=== PATIENT | male | born 1975 | race Caucasian/White ===

== ENCOUNTER 2016-07-01 12:59 | Emergency (ER) | payer BC ==
[2016-07-01 13:25] VITALS: BMI 33.9
--- NOTE | 2016-07-01 13:56 | PDOC ---
Attending Attestation - Resident Resident Name: Zoran Waters - ED Attending Attestation I have performed the following: I have examined & evaluated the patient, The case was reviewed & discussed with the resident, I agree w/resident's findings & plan - HPI HPI: 07/01/16 17:02 41y M no pmhx, recent cough productive of zhang sputum without asosicated fever/chills, cp, mild SHANKS las tnight - was on outpatient abx by PMD, had cxr that showed a wedge like infarct - was given 150mg of lovenox and sent to [facility] due to concern for PE - the pts labs here are unremarakble dimer <200, EKG showed subtle S1Q3T3 - will obtain CTA to r/o PE 07/01/16 18:05 CT negative for PE +lobar pna will dc the pt with pmd fu - Physicial Exam PE: 07/03/16 02:32 see above - Medical Decision Making 07/03/16 02:32 see above Heart Score/ECG Review - ECG Impressions Comment:: 07/01/16 17:03 Twelve-lead EKG was performed and reviewed by me. There is normal sinus rhythm with a normal rate. The axis is normal. The intervals are normal. There is normal R wave progression Nonspecific S1Q3T3
--- NOTE | 2016-07-01 13:57 | PDOC ---
History of Present Illness - General Chief Complaint: Shortness of Breath Stated Complaint: COUGH Time Seen by Provider: 07/01/16 13:19 History Source: Patient Exam Limitations: No Limitations - History of Present Illness Initial Comments: 07/01/16 13:57 41 yo M with no significant PMhx presents with one week history of productive cough. Patient states that for the past week he has had a progressive cough productive of green/brown sputum. He went today to see his PMD and had an xray done which was worrisome for PE. He has no history of PE, immobility, surgery, or hypercoaguable state. He denies hemoptysis. The only symptom other that cough is some minor SHANKS. Denies fever, CP,ASTUDILLO, SOB, palpitations, N/V. Past History - Travel Traveled outside of the country in the last 30 days: No Close contact w/someone who was outside of country & ill: No - Past Medical History Allergies/Adverse Reactions: Allergies Allergy/AdvReac Type Severity Reaction Status Date / Time No Known Allergies Allergy Verified 07/01/16 13:25 - Psycho/Social/Smoking Cessation Hx Suicidal Ideation: No Smoking History: Never smoked Substance Use Type: None Patient Lives Alone: No Lives with/in: spouse/SO Respiratory Specific PMHX - Complaint Specific PMHX Angina: No Bronchitis: No Pneumonia: Yes (atypical pna 20yrs ago) Pulmonary Embolus: No TB (Tuberculosis): No Review of Systems - Review of Systems Constitutional: No: Fever Respiratory: Yes: Cough, SOB with Exertion, Productive cough Cardiac (ROS): No: Chest Pain, Palpitations ABD/GI: No: Nausea, Vomiting : No: Burning, Hematuria Musculoskeletal: No: Back Pain, Joint Pain Neurological: No: Headache *Physical Exam - Vital Signs Last Vital Signs Temp Pulse Resp BP Pulse Ox 81 22 122/90 98 07/01/16 13:22 07/01/16 13:22 07/01/16 13:22 07/01/16 13:22 - Physical Exam HEENT: positive: EOMI, MABLE, TMs Normal Neck: positive: Supple Respiratory/Chest: positive: Lungs Clear, Normal Breath Sounds. negative: Respiratory Distress, Accessory Muscle Use Cardiovascular: positive: Regular Rhythm, Regular Rate Vascular Pulses: Dorsalis-Pedis (R): 2+, Doralis-Pedis (L): 2+ Gastrointestinal/Abdominal: positive: Normal Bowel Sounds, Soft. negative: Tender Musculoskeletal: positive: Normal Inspection. negative: CVA Tenderness Extremity: positive: Normal Inspection, Normal Range of Motion Neurologic: positive: compensation advisor II-XII NML intact, Fully Oriented, Alert, Normal Mood/ Affect, Normal Response ED Treatment Course - LABORATORY CBC & Chemistry Diagram: 07/01/16 14:00 07/01/16 14:00 - ADDITIONAL ORDERS Additional order review: 07/01/16 15:24 Laboratory Results - last 24 hr 07/01/16 07/01/16 07/01/16 14:00 14:00 14:00 WBC 11.3 H RBC 5.72 H Hgb 16.2 Hct 48.0 MCV 83.9 MCHC 33.6 RDW 14.1 Plt Count 341 MPV 7.1 L Neutrophils % 65.8 Lymphocytes % 21.4 Monocytes % 11.0 H Eosinophils % 1.3 Basophils % 0.5 D-Dimer < 200 Sodium 138 Potassium 4.0 Chloride 98 Carbon Dioxide 29 Anion Gap 11 BUN 11 Creatinine 1.0 Creat Clearance w eGFR > 60 Random Glucose 87 Calcium 9.2 Total Bilirubin 0.8 AST 22 ALT 55 Alkaline Phosphatase 67 B-Natriuretic Peptide Total Protein 8.1 Albumin 4.3 07/01/16 14:00 WBC RBC Hgb Hct MCV MCHC RDW Plt Count MPV Neutrophils % Lymphocytes % Monocytes % Eosinophils % Basophils % D-Dimer Sodium Potassium Chloride Carbon Dioxide Anion Gap BUN Creatinine Creat Clearance w eGFR Random Glucose Calcium Total Bilirubin AST ALT Alkaline Phosphatase B-Natriuretic Peptide 13.82 Total Protein Albumin - RADIOLOGY Chest X-Ray Result: Pneumonia Radiograph Interpretation: 07/01/16 13:18 CXR shows right sided infiltrate vs consolidation. Medical Decision Making - Medical Decision Making 07/01/16 13:14 41 yo M with no significant PMHx presents with one week history of productive cough. Sent from PMD with suspicious CXR to r/o PE. Given 1x dose lovenox in office and sent to ED. No calf tenderness, SOB, hypoxia, or tachycardia. Low pre -test probability of PE. Plan: * CBC, CMP, ABG * O2 sat 96% on RA * D-Dimer *DC/Admit/Observation/Transfer Diagnosis at time of Disposition: Pneumonia Qualifiers: Pneumonia type: due to unspecified organism Laterality: right Lung location: middle lobe of lung Qualified Code(s): J18.1 - Lobar pneumonia, unspecified organism - Discharge Dispostion Disposition: HOME Condition at time of disposition: Stable Admit: No - Referrals Referrals: Bradly Mendoza MD [Primary Care Provider] - - Patient Instructions Printed Discharge Instructions: DI for Pneumonia -- Adult Additional Instructions: You have been diagnosed with Pneumonia. Please take antibiotics as directed. If symptoms worsen or do not improve please return to ED. Follow up with primary doctor as soon as possible. Increase activity as tolerated. - Post Discharge Activity Work/School Note: Back to Work
[2016-07-01 14:13] LABS: BASOPHIL 0.5 % (0-2.0); EOSINOPHIL 1.3 % (0-4.5); MCH 28.2 pg (25.7-33.7); MCHC 33.6 g/dl (32.0-35.9); MEAN CELL VOLUME 83.9 fl (80-96); MEAN PLT VOLUME 7.1 fl (7.5-11.1); NEUTROPHILS 65.8 % (42.8-82.8); PLATELET COUNT 341 K/MM3 (134-434); RDW 14.1 % (11.9-15.9); WHITE BLOOD COUNT 11.3 K/mm3 (4.0-10.0)
--- NOTE | 2016-07-01 14:16 | PN ---
Progress Note (short form) - Note Progress Note: PULMONARY CONSULTATION DICTATED 07/01/16 IMP RUL CONSOLIDATION C/W PNEUMONIA DOUBT PE/PULMONARY INFARCT PLAN ANTIBIOTICS CHEST CTA SPUTUM C+S NASAL O2 D-DIMER DR COMER Problem List - Problems (1) Pneumonia Code(s): J18.9 - PNEUMONIA, UNSPECIFIED ORGANISM Qualifiers: Pneumonia type: due to unspecified organism Laterality: right Lung location: middle lobe of lung Qualified Code(s): J18.1 - Lobar pneumonia, unspecified organism (2) Pulmonary infarct Code(s): I26.99 - OTHER PULMONARY EMBOLISM WITHOUT ACUTE COR PULMONALE
--- NOTE | 2016-07-01 14:38 | CONS ---
DATE OF CONSULTATION: 07/01/2016 REFERRING PHYSICIAN: Alex Goodman MD HISTORY OF PRESENT ILLNESS: The patient is a 41-year-old male without any past medical history who is a nonsmoker, admitted to [facility] with the complaint of 1-week history of cough productive of brownish sputum and chills and generalized weakness. He went to his PMD's office today. At the time, he had a chest x-ray performed which revealed a right upper lobe pleural-based consolidation. He was transferred to [facility] for possible rule out PE. Patient denies any sedentary lifestyle. Denies any recent prolonged car ride or bedrest. There is no history of PE or DVT in the past. There is no family history of DVT or PE in the past. There is no history of recent travel. There is no history of occupational exposure to chemical or fumes. He denies any shortness of breath at rest, although he states that last night when running about 2 blocks he felt mildly dyspneic. He denies any hemoptysis. Denies any chest pains or palpitations. Denies any fevers, weight loss, or night sweats. PAST MEDICAL HISTORY: Again is unremarkable. PAST SURGICAL HISTORY: Negative and unremarkable. REVIEW OF SYSTEMS: No orthopnea. No PND. No chest pain. No palpitations. Positive cough. Positive brownish sputum. Positive occasional wheeze. No chest pain. No palpitations. No fevers. No weight loss. No night sweats. Positive mild chills. No lower extremity edema. SOCIAL HISTORY: Nonsmoker. No occupational exposures. PHYSICAL EXAMINATION: General: The patient is a well-developed, well-nourished male, awake, alert, in no acute distress. Vital Signs: He is currently afebrile, O2 saturation is 95% on room air, blood pressure 122/90, respiratory rate is 22. HEENT: Normocephalic, atraumatic. Neck: Supple. Heart: Regular S1, S2. Chest: Clear. Abdomen: Soft. Bowel sounds positive. Extremities: No cyanosis or edema. LABORATORIES: Pending. Chest x-ray performed at D's office revealed a right upper lobe consolidation, pleural based. IMPRESSION: 1. Right upper lobe consolidation c/w pneumonia, community acquired. 2. Doubt pulmonary embolism - pulmonary infarct patient denies shortness of breath or chest pain.O2 sat 97% on RA PLAN: Chest CTA. D-dimer. Sputum for C & S. Antibiotics. Nasal O2. Thank you. KATY COMER M.D. JASMIN/[id number] MTDD
[2016-07-01 14:41] LABS: ALBUMIN 4.3 g/dl (3.4-5.0); ANION GAP 11 (8-16); CALCIUM 9.2 mg/dL (8.5-10.1); CO2 29 mmol/L (21-32); GLUCOSE,RANDOM 87 mg/dL (74-106)
[2016-07-01 14:45] LABS: ALK PHOS 67 U/L (45-117); BILIRUBIN,TOTAL 0.8 mg/dL (0.2-1.0); COCKROFT - GAULT 129.65; SGOT/AST 22 U/L (15-37); SGPT/ALT 55 U/L (12-78); TOT PROT 8.1 g/dl (6.4-8.2)
[2016-07-01 18:20] VITALS: BP 125/86; PULSE 86; TEMP 98.7
--- NOTE | 2016-07-02 16:22 | EKG ---
Test Reason : Blood Pressure : / mmHG Vent. Rate : 084 BPM Atrial Rate : 084 BPM P-R Int : 180 ms QRS Dur : 084 ms QT Int : 354 ms P-R-T Axes : 031 024 018 degrees QTc Int : 418 ms NORMAL SINUS RHYTHM NORMAL ECG NO PREVIOUS ECGS AVAILABLE Confirmed by NELSON HOANG MD ([id number]) on 07/02/2016 4:22:00 PM Referred By: Confirmed By:NELSON HOANG MD
== END 2016-07-01 18:20 | disposition home or self-care (01) ==
LOC: JER 12:59
DX: J18.1 Lobar pneumonia, unspecified organism (principal)
CPT/HCPCS: 36415; 71275-TC; 80053; 83880; 85025; 85379; 93005; 93010; 99283-25

== ENCOUNTER 2018-05-11 10:01 | Day surgery (SDC) | payer BC ==
[2018-05-10 16:48] VITALS: BMI 29.5
[2018-05-11 10:33] LABS: BASO % 0.6 % (0-2.0); HEMATOCRIT 45.3 % (35.4-49); HEMOGLOBIN 15.8 GM/dL (11.7-16.9); LYMPH % 36.6 % (8-40); MCH 29.6 pg (25.7-33.7); MCHC 34.9 g/dl (32.0-35.9); MEAN CELL VOLUME 84.8 fl (80-96); MEAN PLT VOLUME 7.2 fl (7.5-11.1); MONO % 8.3 % (3.8-10.2); NEUT % 53.5 % (42.8-82.8); PLATELET COUNT 283 K/MM3 (134-434); RBC 5.34 M/mm3 (4.00-5.60); RDW 14.5 % (11.9-15.9); WHITE BLOOD COUNT 6.5 K/mm3 (4.0-10.0)
[2018-05-11 10:49] LABS: INR 1.05 (0.83-1.09); PROTHROMBIN TIME (PATIENT) 12.4 SEC (9.7-13.0)
[2018-05-11 10:57] LABS: ALK PHOS 48 U/L (45-117); ANION GAP 5 MMOL/L (8-16); BILIRUBIN,TOTAL 0.4 mg/dL (0.2-1); BLOOD UREA NITROGEN 14 mg/dL (7-18); CALCIUM 8.7 mg/dL (8.5-10.1); CHLORIDE 109 mmol/L (98-107); CO2 29 mmol/L (21-32); CREATININE 0.8 mg/dL (0.55-1.3); GLUCOSE,RANDOM 97 mg/dL (74-106); SGOT/AST 30 U/L (15-37); SGPT/ALT 83 U/L (13-61); SODIUM 142 mmol/L (136-145); TOT PROT 7.4 g/dl (6.4-8.2)
[2018-05-11] MEDS ORDERED: BUPIVACAINE HCL/PF 0.5% (5MG/ML) 10 ML VIAL ONE (11:25)
[2018-05-11] MEDS ORDERED: LIDOCAINE HCL 1%, 10 MG/ML (20ML VIAL) ONE (11:25)
--- NOTE | 2018-05-11 11:35 | HP ---
History & Physical Update - Physical Physical: No Change - Assessment Assessment: No Change - Plan Plan: No Change (soft tissue mass right forearm for excision; r/b/t/a/'s d/w the patient and informed consent obtained.)
[2018-05-11] MEDS ORDERED: BUPIVACAINE HCL/PF (5 MG/ML) 30 ML VIAL IJ ONE ×2 (12:02)
[2018-05-11] MEDS ORDERED: LIDOCAINE HCL 1%, 10 MG/ML (20ML VIAL) NR ONE ×2 (12:02)
[2018-05-11 12:57] VITALS: TEMP 98.7
[2018-05-11 14:46] VITALS: BP 129/86; PULSE 75
--- NOTE | 2018-05-14 18:14 | PATH ---
Surgical Pathology Report Patient Name: DERRICK JOHNSON [facility]. Rec. #: [id number] /Age/Gender: 1975 (Age: 43) / M Account: [id number] Location: [facility] SUR[facility]ICAL Taken: 05/11/2018 Received: 05/11/2018 Reported: 05/14/2018 Physicians: Abhi Celeste MD Specimen(s) Received LIPOMA RIGHT ARM Clinical History Soft tissue mass right arm Final Diagnosis LIPOMA, RIGHT ARM, EXCISION: MATURE FIBROADIPOSE TISSUE CONSISTENT WITH LIPOMA. Electronically Signed Ekta Jefferson M.D. Gross Description Received in formalin labeled "lipoma right arm," is a 2.0 x 1.8 x 0.5 cm portion of yellow, lobulated adipose tissue. Sectioning reveals homogeneous yellow, smooth fat. No areas of hemorrhage or necrosis are identified. Outside Physical Damage Appraiser sections are submitted in one cassette. /05/11/2018 saudi05/11/2018
--- NOTE | 2018-05-21 20:43 | OP ---
DATE OF OPERATION: 05/11/2018 PREOPERATIVE DIAGNOSIS: Lipoma of right forearm. POSTOPERATIVE DIAGNOSIS: Lipoma of right forearm. PROCEDURE: Excision of lipoma, right forearm. SURGEON: Abhi Celeste MD ANESTHESIA: Local with IV sedation. OPERATIVE FINDINGS: There was approximately a 2.5 cm in greatest dimension lipoma involving within the soft tissue of the right volar forearm. The rest of the findings were unremarkable. DESCRIPTION OF PROCEDURE: The patient was placed on the operating room table in supine position, and the area over the clinical lipoma in question was prepped with ChloraPrep and draped in sterile fashion. A time-out was taken and incision mapped out in the long axis of the extremity over the palpable abnormality. The area was infiltrated with 1% Xylocaine and 0.5% Marcaine in equal concentrations. Incision was made with a scalpel and taken down through skin and subcutaneous tissue and the mass bluntly dissected. Its pedicle was clamped and the mass excised and sent for pathological examination. The pedicle was ligated with 3-0 Vicryl suture. Hemostasis was secured with electrocautery and the wound copiously irrigated with saline and closed in layers with interrupted 3-0 Vicryl for the deep dermis and 4-0 Monocryl in a subcuticular, continuous fashion to reapproximate the skin edges. Steri-Strips, 4 x 4's, and Tegaderm dressing were placed and the procedure terminated at this point and the patient transferred to the post anesthesia care unit in stable condition awake and alert. ESTIMATED BLOOD LOSS: Minimal. DRAINS: None. SPECIMENS: Lipoma to Pathology. I, Abhi Celeste, was physically present in the operating room from the time the patient was placed on the operating room table until he was transferred to the post anesthesia care unit in [employer] MD ARIANNA Renee/[id number]
== END 2018-05-11 13:30 | disposition home or self-care (01) ==
LOC: JASU-SURG 10:01
PROVIDERS: ATTEND Surgery
PROC: 0JBG0ZZ Excision of Right Lower Arm Subcutaneous Tissue and Fascia, Open Approach (ICD-10-PCS; principal; 2018-05-11 11:30)
DX: D17.21 Benign lipomatous neoplasm of skin and subcutaneous tissue of right arm (principal)
CPT/HCPCS: 36415; 80053; 85025; 85610; 88304-TC

== ENCOUNTER 2022-10-23 22:08 | Emergency (ER) | payer BC ==
[2022-10-23 22:13] VITALS: RESP 18; BMI 37.1
[2022-10-24] MEDS ORDERED: LIDOCAINE 5% TOPICAL PATCH TP ONE (00:19)
[2022-10-24] MEDS ORDERED: METHOCARBAMOL 500 MG TABLET PO ONE (00:20)
[2022-10-24] MEDS ORDERED: METHOCARBAMOL 500 MG TABLET ONE (00:23)
[2022-10-24] MEDS ORDERED: ONDANSETRON 4 MG TABLET PO ONE ×2 (00:27→00:44)
[2022-10-24] MEDS ORDERED: LIDOCAINE 5% TOPICAL PATCH ONE (00:40)
[2022-10-24 02:10] VITALS: BP 140/100; PULSE 67; TEMP 97.1
[2022-10-24] MEDS ORDERED: LIDOCAINE PATCH REMOVAL MC ONE (12:00)
== END 2022-10-24 02:24 | disposition home or self-care (01) ==
LOC: JER 22:08 → JERFT 22:08 → JER 10-24 02:24
DX: M54.50 Low back pain, unspecified (principal)
CPT/HCPCS: 72131-TC; 99284-25